=== PATIENT | female | born 1970 | race Caucasian/White ===

== ENCOUNTER 2018-06-24 07:59 | Emergency (ER) | payer OTHER ==
[2018-06-24 08:30] VITALS: BP 117/74
--- OUTSIDE RECORDS SUMMARY | 2018-06-24 09:10 | XMS REPORT | Continuity of Care Document ---
:1970 External Reference #:[id number] Author Name Juan R Linder M.D. 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 Tobacco Use Start: Unknown End: Former Cigarette Smoker Unknown ETOH Use Currently consumes alcohol socially Tobacco Use Start: Unknown Patient denies history of smoking Recreational Drug Use Denies Drug Use Tobacco Use Start: Unknown End: Patient is a former smoker quit 2008 Unknown Allergies, Adverse Reactions, Alerts Date Description Reaction Status Severity Comments 10/30/2017 Prozac swollen pain in joints Active 10/30/2017 Aspirin Active 10/30/2017 Varenicline Active Medications Medication Date Status Form Strength Qnty SIG Indications Ordering Provider Ergocalciferol 05/11/ Active Capsules [id number] 8caps 1 cap by Brandy, 2018 mouth Jocelyn, every week DO Tamoxifen 01/09/ Active Tablets 20mg 90tab 1 tabl by Jennifer Nava 2017 s mouth Jocelyn, every day DO Demetria-D 24 / Active Tablets ER 180-240mg as needed Unknown Hour Allergy & 0000 24HR Congestion Amlodipine / Active Tablets 2.5mg 1 by mouth Unknown Besylate 0000 every day Albuterol / Active Nebulizer (2.5mg/3M nebulized Unknown Sulfate 0000 L) 0.083% every 4 hours as needed Ortho Tri-Cyclen / Hx Tablets 0.18/0.21 1 by mouth Unknown (28) 0000 - 5/0.25 every day 12/03/ mg-35 mcg 2017 Medications Administered in Office Medication Date Status Form Strength Qnty SIG Indications Ordering Provider Vitamin B12 Administered Injection Oncology Injection 1000 019 Nurse mcg/Ml Vitamin B12 Administered Injection Oncology Injection 1000 019 Nurse mcg/Ml Vitamin B12 Administered Injection Boufal, Injection 1000 019 Jocelyn, mcg/Ml DO Vitamin B12 Administered Injection Boufal, Injection 1000 018 Jocelyn, mcg/Ml DO Immunizations Description No Information Available Vital Signs Date Vital Result Comment 06/18/2018 3:02pm BP Systolic 118 mmHg BP Diastolic 82 mmHg Heart Rate 93 /min Weight 177.00 lb O2 % BldC Oximetry 97 % 05/11/2018 4:06pm BP Systolic 125 mmHg BP Diastolic 77 mmHg Body Temperature 98.3 F Heart Rate 69 /min Respiratory Rate 18 /min Weight 176.00 lb O2 % BldC Oximetry 99 % Pain Level 0 01/30/2018 3:33pm BP Systolic 129 mmHg BP Diastolic 69 mmHg Body Temperature 98.3 F Heart Rate 69 /min Weight 171.25 lb O2 % BldC Oximetry 99 % Pain Level 0 01/09/2018 12:04pm BP Systolic 124 mmHg BP Diastolic 91 mmHg Body Temperature 98.6 F Heart Rate 77 /min Height 66 inches 5'6" Weight 172.38 lb BMI (Body Mass Index) 27.8 kg/m2 BSA (Body Surface Area) 1.88 m2 [place] body weight in kilograms 59 kg O2 % BldC Oximetry 98 % Pain Level 0 12/17/2017 3:08pm BP Systolic 114 mmHg BP Diastolic 80 mmHg Heart Rate 102 /min Respiratory Rate 17 /min Height 65 inches 5'5" Weight 169.00 lb BMI (Body Mass Index) 28.1 kg/m2 BSA (Body Surface Area) 1.84 m2 [place] body weight in kilograms 57 kg O2 % BldC Oximetry 97 % 12/03/2017 8:42am BP Systolic Sitting Right Arm 132 mmHg BP Diastolic Sitting Right Arm 87 mmHg Heart Rate 82 /min Respiratory Rate 14 /min Height 65 inches 5'5" Weight 167.00 lb BMI (Body Mass Index) 27.8 kg/m2 BSA (Body Surface Area) 1.83 m2 [place] body weight in kilograms 57 kg O2 % BldC Oximetry 99 % 11/12/2017 11:31am BP Systolic 137 mmHg BP Diastolic 84 mmHg Respiratory Rate 17 /min Height 65 inches 5'5" Weight 168.00 lb BMI (Body Mass Index) 28.0 kg/m2 BSA (Body Surface Area) 1.84 m2 [place] body weight in kilograms 57 kg O2 % BldC Oximetry 98 % 10/30/2017 3:38pm BP Systolic 117 mmHg BP Diastolic 81 mmHg Heart Rate 124 /min Respiratory Rate 16 /min Height 65 inches 5'5" Weight 171.00 lb BMI (Body Mass Index) 28.5 kg/m2 BSA (Body Surface Area) 1.85 m2 [place] body weight in kilograms 57 kg O2 % BldC Oximetry 95 % Results Test Date Facility Test Result H/L Range Note CBC 04/20/2018 [facility] White Blood 5.9 K/uL N 3.1-10.7 1 W/Automated [address] [place] [address] [phone] Red Blood Count 4.42 M/uL N 3.90-5.40 Hemoglobin 13.3 gm/dL N 11.6-15.8 Hematocrit 40.3 % N 36.0-46.1 Mean Cell Volume 91.2 fl N 80.9-99.0 Mean Corpuscular HGB 30.1 pg N 25.9-32.7 Mean Corpuscular HGB Conc 33.0 g/dL N 30.8-34.3 Platelet Count 213 K/uL N 155-360 Red Cell Distri Width SD 47.3 fl High 36-47 Red Cell Distri Width %CV 14.6 % High 11.7-14.4 Mean Platelet Volume 12.1 fL N 8.9-12.4 Neut% 58.0 % N 40.4-72.8 Lymph % 33.2 % N 20.0-42.0 [place] % 5.1 % N 4.3-13.2 Eo% 3.4 % N 0.0-6.6 Bas% 0.3 % N 0.0-1.1 Neut# 3.45 K/uL N 1.8-7.0 Lymph # 1.97 K/uL N 1.0-4.0 [place] # 0.30 K/uL N 0.3-0.9 Eos # 0.20 K/uL N 0.0-0.5 Baso # 0.02 K/uL N 0.0-0.1 Comprehensive Metabolic 04/20/2018 [facility] Glucose 127 mg/dL High 74-106 Panel [address] [place], [place] [id number] [phone] BUN 13 mg/dL N 7-18 Creatinine 0.9 mg/dL N 0.6-1.3 Glom Filtration Rate, Estimate >60 mL/min >60 If >60 mL/min >60 2 BUN/Creat 14.4 ratio Sodium 143 mmol/L N 136-145 Potassium 3.7 mmol/L N 3.5-5.1 Chloride 110 mmol/L High 98-107 Carbon Dioxide 26 mmol/L N 21-32 Anion Gap 7 mEq/L Low 8-16 Calcium 8.2 mg/dL Low 8.5-10.1 Total Protein 6.9 g/dL N 6.4-8.2 Albumin 3.6 g/dL N 3.4-5.0 Globulin 3.3 g/dL N 1.9-4.3 Alb/Glob 1.1 ratio Bilirubin,Total 0.5 mg/dL N 0.2-1.0 Sgot/Ast 13 U/L Low 15-37 3 SGPT/Alt 17 U/L N 12-78 Alkaline Phosphatase 32 U/L Low 45-117 Laboratory test 04/20/2018 [facility] CA 27.29 17.9 U/mL 0.0-38.6 4 finding [address] [place] [address] [phone] Iron-Tibc-%Sat 04/20/2018 [facility] Serum Iron 143 g/dL N 50-170 [address] [place] [address] [phone] Total Iron Binding Capacity 248 g/dL Low 250-450 Transferrin %Saturation 58 % High 12-57 Laboratory test 04/20/2018 [facility] Ferritin 111 ng/mL N 8-252 finding [address] [place], [place] [id number] [phone] Vitamin B12 And 04/20/2018 [facility] Vitamin B12 320 pg/mL N 193-986 Folate [address] [place] [address] [phone] Folic Acid 14.2 ng/mL N 3.1-17.5 Laboratory 04/20/2018 [facility] Vitamin 14.6 Low 30.0-100.0 5 test finding [address] D,25-Hydroxy ng/mL [place] [id number] [phone] CBC 01/09/2018 [facility] White Blood 8.4 K/uL N 3.1-10.7 W/Automated [address] [place] [address] [phone] Red Blood Count 4.40 M/uL N 3.90-5.40 Hemoglobin 12.9 gm/dL N 11.6-15.8 Hematocrit 40.2 % N 36.0-46.1 Mean Cell Volume 91.4 fl N 80.9-99.0 Mean Corpuscular HGB 29.3 pg N 25.9-32.7 Mean Corpuscular HGB Conc 32.1 g/dL N 30.8-34.3 Platelet Count 275 K/uL N 155-360 Red Cell Distri Width SD 45.0 fl N 3-47 Red Cell Distri Width %CV 13.8 % N 11.7-14.4 Mean Platelet Volume 12.4 fL N 8.9-12.4 Neut% 61.7 % N 40.4-72.8 Lymph % 29.6 % N 20.0-42.0 [place] % 7.0 % N 4.3-13.2 Eo% 1.5 % N 0.0-6.6 Bas% 0.2 % N 0.0-1.1 Neut# 5.18 K/uL N 1.8-7.0 Lymph # 2.49 K/uL N 1.0-4.0 [place] # 0.59 K/uL N 0.3-0.9 Eos # 0.13 K/uL N 0.0-0.5 Baso # 0.02 K/uL N 0.0-0.1 Comprehensive Metabolic 01/09/2018 [facility] Glucose 76 mg/dL N 74-106 Panel [address] [place] [address] [phone] BUN 9 mg/dL N 7-18 Creatinine 0.8 mg/dL N 0.6-1.3 Glom Filtration Rate, Estimate >60 mL/min >60 If >60 mL/min >60 6 BUN/Creat 11.2 ratio Sodium 140 mmol/L N 136-145 Potassium 4.1 mmol/L N 3.5-5.1 Chloride 104 mmol/L N 98-107 Carbon Dioxide 29 mmol/L N 21-32 Anion Gap 7 mEq/L Low 8-16 Calcium 9.0 mg/dL N 8.5-10.1 Total Protein 8.2 g/dL N 6.4-8.2 Albumin 4.3 g/dL N 3.4-5.0 Globulin 3.9 g/dL N 1.9-4.3 Alb/Glob 1.1 ratio Bilirubin,Total 0.4 mg/dL N 0.2-1.0 Sgot/Ast 19 U/L N 15-37 SGPT/Alt 25 U/L N 12-78 Alkaline Phosphatase 49 U/L N 45-117 Laboratory test 01/09/2018 [facility] CA 27.29 20.6 U/mL 0.0-38.6 7 finding [address] [place] [address] [phone] Iron-Tibc-%Sat 01/09/2018 [facility] Serum Iron 37 g/dL Low 50-170 [address] [place] [address] [phone] Total Iron Binding Capacity 395 g/dL N 250-450 Transferrin %Saturation 9 % Low 12-57 Laboratory test 01/09/2018 [facility] Ferritin 8 ng/mL N 8-252 finding [address] [place] [address] [phone] Laboratory test 01/09/2018 [facility] Vitamin 33.9 ng/mL 30.0-100.0 8 finding [address] D,25-Hydroxy [place] [id number] [phone] Vitamin B12 And 01/09/2018 [facility] Vitamin B12 291 pg/mL N 193-986 Folate [address] [place], [place] [id number] [phone] Folic Acid 18.2 ng/mL High 3.1-17.5 Protime 11/26/2017 [facility] Protime 15.1 seconds High 12.0-14.4 9 [address] [place] [address] [phone] Inr 1.2 High 0.9-1.1 10 CBC 11/26/2017 [facility] White Blood Count 10.3 K/uL N 3.1-10.7 [address] [place] [address] [phone] Red Blood Count 4.01 M/uL N 3.90-5.40 Hemoglobin 12.2 gm/dL N 11.6-15.8 Hematocrit 36.9 % N 36.0-46.1 Mean Cell Volume 92.0 fl N 80.9-99.0 Mean Corpuscular HGB 30.4 pg N 25.9-32.7 Mean Corpuscular HGB Conc 33.1 g/dL N 30.8-34.3 Platelet Count 229 K/uL N 155-360 Red Cell Distri Width %CV 13.8 % N 11.7-14.4 Mean Platelet Volume 12.3 fL N 8.9-12.4 Laboratory test 11/25/2017 [facility] Platelet Count 195 K/uL N 155-360 finding [address] [place] [address] [phone] 1 C50.211 2 Note: Persistent reduction for 3 months or more in an eGFR <60 mL/min/1.73 m2 defines CKD. Patients with eGFR values >/=60 mL/min/1.73 m2 may also have CKD if evidence of persistent proteinuria is present. The original MDRD equation for estimated GFR is not valid for patients less than 18 years of age. Additional information may be found at www.kdoqi.org. 3 Values below the stated reference ranges of AST and ALT can be seen in normal populations. Clinical correlation is suggested. 4 Chantale Centaur/ACS methodology Values obtained with different assay methods or kits cannot be used interchangeably. Results cannot be interpreted as absolute evidence of the presence or absence of malignant disease. Performed at: [address] [id number] Resident Program Specialist: Rosa Horvath MD, Phone: [phone] 5 Vitamin D deficiency has been defined by the [place] of [employer] and an Endocrine Society practice guideline as a level of serum 25-OH vitamin D less than 20 ng/mL (1,2). The Endocrine Society went on to further define vitamin D insufficiency as a level between 21 and 29 ng/mL (2). 1. IOM ([place] of [employer]). 2010. Dietary reference intakes for calcium and D. Cox [place]: The National Academies Press. 2. Deja MF, Sammy NC, Tc SARAVIA, et al. Evaluation, treatment, and prevention of vitamin D deficiency: an Endocrine Society clinical practice guideline. JCEM. 2010; 96(7):1911-30. Performed at: [facility] [address] [id number] Resident Program Specialist: Rosa Horvath MD, Phone: [phone] Note: Persistent reduction for 3 months or more in an eGFR <60 mL/min/1.73 m2 defines CKD. Patients with eGFR values >/=60 mL/min/1.73 m2 may also have CKD if evidence of persistent proteinuria is present. The original MDRD equation for estimated GFR is not valid for patients less than 18 years of age. Additional information may be found at www.kdoqi.org. 7 Chantale Centaur/ACS methodology Values obtained with different assay methods or kits cannot be used interchangeably. Results cannot be interpreted as absolute evidence of the presence or absence of malignant disease. Performed at: [facility] [address] [id number] Resident Program Specialist: Rosa Horvath MD, Phone: [phone] 8 Vitamin D deficiency has been defined by the [place] [employer] and an Endocrine Society practice guideline as a level of serum 25-OH vitamin D less than 20 ng/mL (1,2). The Endocrine Society went on to further define vitamin D insufficiency as a level between 21 and 29 ng/mL (2). 1. IOM ([place] of [employer]). 2010. Dietary reference intakes for calcium and D. Cox [place]: The National Academies Press. 2. Deja MF, Sammy NC, Tc SARAVIA, et al. Evaluation, treatment, and prevention of vitamin D deficiency: an Endocrine Society clinical practice guideline. JCEM. 2010; 96(7):1911-30. Performed at: RN - [facility] [address] [id number] Resident Program Specialist: Rosa Horvath MD, Phone: [phone] CONSULT 11/21/17 12:00 10 THERAPEUTIC INR RANGE: 2.0 - 3.0 DVT, Pulmonary embolus, prophylaxis against venous thrombosis or systemic embolization in high risk patients. 2.5 - 3.5 Mechanical heart valves Procedures Date Code Description Status 06/08/2018 41411 Theraputic Or Diagnostic Injection Completed 05/25/2018 34549 Theraputic Or Diagnostic Injection Completed 05/11/2018 49151 Theraputic Or Diagnostic Injection Completed 01/30/2018 51942 Theraputic Or Diagnostic Injection Completed 11/26/2017 18767 Incision And Drainage Of Hematoma, Seroma Or Fluid Completed Collection 11/25/2017 16325 Mastectomy, modified radical inc axilla lymph nodes Completed w/wo pectoral 09/29/2017 [id number] Mammogram Completed Encounters Type Date Location Provider Dx Diagnosis Office Visit 05/11/2018 Oncology Office Jocelyn Nava C50.211 [facility] of 3:30p DO upper-inner quadrant of right female breast E53.9 Vitamin B deficiency, unspecified E61.1 Iron deficiency E55.9 Vitamin D deficiency, unspecified Office Visit 01/30/2018 3:30p Oncology Office Brandy C50.211 [facility] neoplm of Jocelyn, DO upper-inner quadrant of right female breast E61.1 Iron deficiency E53.9 Vitamin B deficiency, unspecified Office Visit 01/09/2018 Oncology Jocelyn Nava C50.211 [facility] neoplm of 12:00p Office DO upper-inner quadrant of right female breast Office Visit 11/12/2017 Surgical Niyah, C50.211 [facility] neoplm of 11:30a Office isaias Valente M.D. quadrant of right female breast Office Visit 10/30/2017 Surgical Niyah R92.8 Oth abn and 3:00p Office carl Valente M.D. findings on dx imaging of breast Plan of Treatment Future Appointment(s):07/02/2018 8:30 am - Juan R Linder M.D. at Surgical Pbivay2406/22/2018 8:30 am - Oncology Nurse at Oncology [id number] - Juan R Linder M.D.C50.211 Malignant neoplasm of upper-inner quadrant of right female breastNew Labs:Path Review, Scheduled: 12/03/17Comments :Doing well following mastectomy. No difficulties. Use Silvadene on gauze dressings going forward until the drainage subsides. Return in 2 weeks. Oncology follow-up in place to be continued without change in plan.Referral: Jocelyn Nava DO, Hematology & Oncology
--- OUTSIDE RECORDS SUMMARY | 2018-06-24 09:11 | XMS REPORT | Continuity of Care Document ---
:1970 External Reference #:[id number] Author Name Kamilah Cool Care Team Providers Name Role Phone Ethan Blackmon MD Care Team Information Trauma Doctor Unavailable Benedicto Jamison MD Primary Care Physician Unavailable Payers Date Identification Numbers Payment Provider Subscriber Policy Number: [id number] Lifetime Benefit Solution Charmaine Alcantara PayID: [id number] [address] [address] [place] [address] Advance Directives Description No Information Available Problems Date Description Provider Status Onset: 11/12/2017 Malignant neoplasm of Juan R Linder Active upper-inner 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 breast Onset: 12/17/2017 Postoperative hematoma Juan R Linder Active formation M.D. Onset: 05/11/2018 Vitamin D [...] Indications Ordering Provider Ergocalciferol 05/11/ Active Capsules [id number] 8caps 1 cap by Radha Nava mouth Jocelyn, every week DO Tamoxifen 01/09/ Active Tablets 20mg 90tab 1 tabl by Brandy Citrate 2017 s mouth Jocelyn, every day DO [...] Available Vital Signs Date Vital Result Comment 05/11/2018 4:06pm BP Systolic 125 mmHg BP [...] kg/m2 BSA (Body Surface Area) 1.88 m2 [place] body weight in kilograms 59 kg O2 % BldC Oximetry 98 % Pain Level 0 12/17/2017 3:08pm BP Systolic 114 mmHg BP Diastolic 80 mmHg Heart Rate 102 /min Respiratory Rate 17 /min Height 65 inches 5'5" Weight 169.00 lb BMI (Body Mass Index) 28.1 kg/m2 BSA (Body Surface Area) 1.84 m2 [place] body weight in kilograms 57 kg O2 % BldC Oximetry 97 % 12/03/2017 8:42am BP Systolic Sitting Right Arm 132 mmHg BP Diastolic Sitting Right Arm 87 mmHg Heart Rate 82 /min Respiratory Rate 14 /min Height 65 inches 5'5" Weight 167.00 lb BMI (Body Mass Index) 27.8 kg/m2 BSA (Body Surface Area) 1.83 m2 [place] body weight in kilograms 57 kg O2 % BldC Oximetry 99 % 11/12/2017 11:31am BP Systolic 137 mmHg BP Diastolic 84 mmHg Respiratory Rate 17 /min Height 65 inches 5'5" Weight 168.00 lb BMI (Body Mass Index) 28.0 kg/m2 BSA (Body Surface Area) 1.84 m2 [place] body weight in kilograms 57 kg O2 % BldC Oximetry 98 % 10/30/2017 3:38pm BP Systolic 117 mmHg BP Diastolic 81 mmHg Heart Rate 124 /min Respiratory Rate 16 /min Height 65 inches 5'5" Weight 171.00 lb BMI (Body Mass Index) 28.5 kg/m2 BSA (Body Surface Area) 1.85 m2 [place] body weight in kilograms 57 kg O2 % BldC Oximetry 95 % Results Test Date Facility Test Result H/L Range Note CBC 04/20/2018 [facility] White Blood 5.9 K/uL N 3.1-10.7 1 W/Automated [address] [place] [address] [phone] Red Blood Count 4.42 M/uL N 3.90-5.40 [...] 40.4-72.8 Lymph % 33.2 % N 20.0-42.0 [place] % 5.1 % N 4.3-13.2 Eo% 3.4 % N 0.0-6.6 Bas% 0.3 % N 0.0-1.1 Neut# 3.45 K/uL N 1.8-7.0 Lymph # 1.97 K/uL N 1.0-4.0 [place] # 0.30 K/uL N 0.3-0.9 Eos # 0.20 K/uL N 0.0-0.5 Baso # 0.02 K/uL N 0.0-0.1 Comprehensive Metabolic 04/20/2018 [facility] Glucose 127 mg/dL High 74-106 Panel [address] [place] [address] [phone] BUN 13 mg/dL N 7-18 Creatinine 0.9 [...] 32 U/L Low 45-117 Laboratory test 04/20/2018 [facility] CA 27.29 17.9 U/mL 0.0-38.6 4 finding [address] [place] [address] [phone] Iron-Tibc-%Sat 04/20/2018 [facility] Serum Iron 143 g/dL N 50-170 [address] [place] [address] [phone] Total Iron Binding Capacity 248 g/dL Low 250-450 Transferrin %Saturation 58 % High 12-57 Laboratory test 04/20/2018 [facility] Ferritin 111 ng/mL N 8-252 finding [address] [place] [address] [phone] Vitamin B12 And 04/20/2018 [facility] Vitamin B12 320 pg/mL N 193-986 Folate [address] [place] [address] [phone] Folic Acid 14.2 ng/mL N 3.1-17.5 Laboratory 04/20/2018 [facility] Vitamin 14.6 Low 30.0-100.0 5 test finding [address] D,25-Hydroxy ng/[place] [address] [phone] Laboratory 01/09/2018 [facility] Vitamin 33.9 30.0-100.0 6 test finding [address] D,25-Hydroxy ng/[place] [address] [phone] Vitamin B12 01/09/2018 [facility] Vitamin B12 291 pg/mL N 193-986 And Folate [address] [place] [address] [phone] Folic Acid 18.2 ng/mL High 3.1-17.5 Laboratory test 01/09/2018 [facility] Ferritin 8 ng/mL N 8-252 finding [address] [place] [address] [phone] Iron-Tibc-%Sat 01/09/2018 [facility] Serum Iron 37 g/dL Low 50-170 [address] [place] [address] [phone] Total Iron Binding Capacity 395 g/dL N 250-450 Transferrin %Saturation 9 % Low 12-57 Laboratory test finding 01/09/2018 [facility] CA 27.29 20.6 U/mL 0.0-38.6 7 [address] [place] [address] [phone] Comprehensive Metabolic 01/09/2018 [facility] Glucose 76 mg/dL N 74-106 Panel [address] [place] [address] [phone] BUN 9 mg/dL N 7-18 Creatinine 0.8 mg/dL N 0.6-1.3 Glom Filtration Rate, Estimate >60 mL/min >60 If >60 mL/min >60 8 BUN/Creat 11.2 ratio Sodium 140 mmol/L N [...] 12-78 Alkaline Phosphatase 49 U/L N 45-117 CBC W/Automated Diff 01/09/2018 [facility] White Blood 8.4 K/uL N 3.1-10.[address] Count [place], [place] [id number] [phone] Red Blood Count 4.40 M/uL N 3.90-5.40 [...] 40.4-72.8 Lymph % 29.6 % N 20.0-42.0 [place] % 7.0 % N 4.3-13.2 Eo% 1.5 % N 0.0-6.6 Bas% 0.2 % N 0.0-1.1 Neut# 5.18 K/uL N 1.8-7.0 Lymph # 2.49 K/uL N 1.0-4.0 [place] # 0.59 K/uL N 0.3-0.9 Eos # 0.13 K/uL N 0.0-0.5 Baso # 0.02 K/uL N 0.0-0.1 CBC 11/26/2017 [facility] White Blood Count 10.3 K/uL N 3.1-10.7 9 [address] [place], [place] [address] [phone] Red Blood Count 4.01 M/uL N 3.90-5.40 Hemoglobin 12.2 gm/dL N 11.6-15.8 Hematocrit 36.9 % N 36.0-46.1 Mean Cell Volume 92.0 fl N 80.9-99.0 Mean Corpuscular HGB 30.4 pg N 25.9-32.7 Mean Corpuscular HGB Conc 33.1 g/dL N 30.8-34.3 Platelet Count 229 K/uL N 155-292 Red Cell Distri Width %CV 13.8 % N 11.7-14.4 Mean Platelet Volume 12.3 fL N 8.9-12.4 Protime 11/26/2017 [facility] Protime 15.1 seconds High 12.0-14.4 [address] [place], [place] [address] [phone] Inr 1.2 High 0.9-1.1 10 Laboratory test 11/25/2017 [facility] Platelet Count 195 K/uL N 155-360 finding [address] [place], [place] [address] [phone] 1 C50.211 2 Note: Persistent reduction for [...] populations. Clinical correlation is suggested. 4 Chantale Augmateaur/AlloCure methodology Values obtained with different assay methods or kits cannot be used interchangeably. Results cannot be interpreted as absolute evidence of the presence or absence of malignant disease. Performed at: RN - [facility], [place] [id number] [employer] Worker: Rosa Horvath MD, Phone: [phone] 5 Vitamin D deficiency has been defined by the [place] [employer] and an Endocrine Society practice guideline as a level of serum 25-OH vitamin D less than 20 ng/mL (1,2). The Endocrine Society went on to further define vitamin D insufficiency as a level between 21 and 29 ng/mL (2). 1. IOM ([place] [employer]). 2010. Dietary reference intakes for calcium and D. [place]: The National Academies Press. 2. Sammy Chaudhari, Tc SARAVIA, et al. Evaluation, treatment, and prevention of vitamin D deficiency: an Endocrine Society clinical practice guideline. JCEM. 2010; 96(7):1911-30. Performed at: [address] [id number] [employer] Worker: Rosa Horvath MD, Phone: [phone] 6 Vitamin D deficiency has been defined by the [place] [employer] and an Endocrine Society practice guideline as a level of serum 25-OH vitamin D less than 20 ng/mL (1,2). The Endocrine Society went on to further define vitamin D insufficiency as a level between 21 and 29 ng/mL (2). 1. IOM ([place] [employer]). 2010. Dietary reference intakes for calcium and D. [place]: The National Academies Press. 2. Sammy Chaudhari, Tc SARAVIA, et al. Evaluation, treatment, and prevention of vitamin D deficiency: an Endocrine Society clinical practice guideline. JCEM. 2010; 96(7):1911-30. Performed at: [address] [id number] [employer] Worker: Rosa Horvath MD, Phone: [phone] 7 Chantale Augmateaur/ACS methodology Values obtained with different assay methods or kits cannot be used interchangeably. Results cannot be interpreted as absolute evidence of the presence or absence of malignant disease. Performed at: [address] [id number] [employer] Worker: Rosa Horvath MD, Phone: [phone] Note: Persistent reduction for 3 months or more in an eGFR <60 mL/min/1.73 m2 defines CKD. Patients with eGFR values >/=60 mL/min/1.73 m2 may also have CKD if evidence of persistent proteinuria is present. The original MDRD equation for estimated GFR is not valid for patients less than 18 years of age. Additional information may be found at www.kdoqi.org. 9 CONSULT 11/21/17 12:00 10 THERAPEUTIC INR RANGE: 2.0 - 3.0 DVT, Pulmonary embolus, prophylaxis against venous thrombosis or systemic embolization in high risk patients. 2.5 - 3.5 Mechanical heart valves Procedures Date Code Description Status 05/25/2018 93565 Theraputic Or Diagnostic Injection Completed 01/30/2018 80752 Theraputic Or Diagnostic Injection Completed 11/26/2017 44983 Incision And Drainage Of Hematoma, Seroma Or Fluid Completed Collection 11/25/2017 21592 Mastectomy, modified radical inc axilla lymph nodes Completed w/wo pectoral 09/29/2017 95956685 Mammogram Completed Encounters Type Date Location Provider Dx Diagnosis Office Visit 01/30/2018 Oncology Office Jocelyn Nava C50.211 [place] [facility] of 3:30p DO upper-inner quadrant of right female breast E61.1 Iron deficiency E53.9 Vitamin B deficiency, unspecified Office Visit 01/09/2018 Oncology Jocelyn Nava C50.211 [place] neopl[facility] of 12:00p Office DO upper-inner quadrant of right female breast Office Visit 11/12/2017 Sandra Linder C50.211 [place] neopl[facility] of 11:30a Office isaias Valente M.D. quadrant of right female breast Office Visit 10/30/2017 Surgical Niyah R92.8 Ot abn and 3:00p Office carl Valente M.D. findings on dx imaging of breast Plan of Treatment Future Appointment(s):06/08/2018 8:00 am - Oncology Nurse at [facility]0110/2018 10:00 am - Juan R Linder M.D. at [facility]7012/03/2017 - Juan R Linder M.D.C50.211 Malignant neoplasm of upper-inner quadrant of right female breastNew Labs:Path Review, Scheduled: 12/03/17Comments :Doing well following mastectomy. No difficulties. Use Silvadene on gauze dressings going forward until the drainage subsides. Return in 2 weeks. Oncology follow-up in place to be continued without change in plan.Referral: Jocelyn Nava DO, Hematology & Oncology
--- NOTE | 2018-06-24 09:32 | UC ---
Throat Pain/Nasal Giuliano HPI - HPI Summary HPI Summary: 48-year-old woman comes in with a chief complaint of upper respiratory tract infection symptoms for 3 days. She has runny nose and sinus pressure. She had some blood in her rhinorrhea this morning. [id number]-[id number] medicines to help with symptoms. She does have a cough but no shortness of breath. No chest congestion. No sore throat no bodyaches. - History of Current Complaint Chief Complaint: UCGeneralIllness Stated Complaint: CONGESTION SINUS COUGH Time Seen by Provider: 06/24/18 09:21 Hx Last Menstrual Period: ablation Pain Intensity: 0 - Allergies/Home Medications Allergies/Adverse Reactions: Allergies Allergy/AdvReac Type Severity Reaction Status Date / Time aspirin Allergy See Comment Verified 06/24/18 08:25 fluoxetine [From Prozac] AdvReac See Comment Verified 06/24/18 08:25 varenicline [From Chantix] AdvReac See Comment Verified 06/24/18 08:25 Home Medications: Home Medications Cholecalciferol TAB* [Vitamin D TAB*] 1,000 unit PO DAILY 06/24/18 [History Confirmed 06/24/18] Fexofenadine/Pseudoephedrine [Demetria-D 24 Hour Tablet] 1 each PO DAILY [History Confirmed 06/24/18] Ibuprofen TAB* [Motrin TAB* 800 MG] 800 mg PO Q6H PRN 06/24/18 [History Confirmed 06/24/18] Tamoxifen TAB* [Nolvadex*] 20 mg PO DAILY 06/24/18 [History Confirmed 06/24/18] amLODIPine TAB* [Norvasc 5 mg TAB*] 2.5 mg PO DAILY 06/24/18 [History Confirmed 06/24/18] PMH/Surg Hx/FS Hx/Imm Hx Previously Healthy: Yes Cardiovascular History: Hypertension Cancer History: Breast Cancer - Surgical History Surgical History: Yes Surgery Procedure, Year, and Place: ganglion cyst. breast biopsy. masectomy R. uterine ablation. tubal - Family History Known Family History: Positive: Non-Contributory - Social History Alcohol Use: Occasionally Substance Use Type: None Smoking Status (MU): Former Smoker When Did the Patient Quit Smoking/Using Tobacco: 5 + years Review of Systems All Other Systems Reviewed And Are Negative: Yes Constitutional: Positive: Negative Skin: Positive: Negative Eyes: Positive: Negative ENT: Positive: Nasal Discharge, Sinus Congestion, Sinus Pain/Tenderness Respiratory: Positive: Cough Cardiovascular: Positive: Negative Gastrointestinal: Positive: Negative Motor: Positive: Negative Neurovascular: Positive: Negative Musculoskeletal: Positive: Negative Neurological: Positive: Negative Psychological: Positive: Negative Is Patient Immunocompromised?: No Physical Exam Triage Information Reviewed: Yes Appearance: No Pain Distress, Well-Nourished, Ill-Appearing - MILD Vital Signs: Initial Vital Signs Temp 97.9 F 06/24/18 08:26 Pulse 85 06/24/18 08:26 Resp 16 06/24/18 08:26 BP 117/74 06/24/18 08:26 Pulse Ox 99 06/24/18 08:26 Vital Signs Reviewed: Yes Eye Exam: Normal Eyes: Positive: Conjunctiva Clear ENT: Positive: Pharyngeal erythema, Nasal congestion, Nasal drainage, TMs normal Neck exam: Normal Neck: Positive: Supple Respiratory: Positive: Lungs clear, Normal breath sounds, No respiratory distress Cardiovascular: Positive: RRR Musculoskeletal Exam: Normal Musculoskeletal: Positive: Strength Intact, ROM Intact Neurological Exam: Normal Neurological: Positive: Alert, Muscle Tone Normal Psychological Exam: Normal Psychological: Positive: Age Appropriate Behavior Skin Exam: Normal Throat Pain/Nasal Course/Dx - Course Course Of Treatment: DISCUSSED VIRAL VERSES BACTERIAL INFECTION AND THE ROLE OF ANTIBIOTICS. THE PATIENT WISHES TO BE ON ANTIBIOTICS AT THIS TIME. - Differential Dx/Diagnosis Provider Diagnosis: Upper respiratory infection Discharge - Sign-Out/Discharge Documenting (check all that apply): Patient Departure All imaging exams completed and their final reports reviewed: No Studies - Discharge Plan Condition: Stable Disposition: HOME Prescriptions: Amoxicillin PO (*) [Amoxicillin 875 MG (*)] 875 mg PO BID #20 tab Benzonatate CAP* [Tessalon 100 MG CAP*] 100 mg PO TID PRN #20 cap PRN Reason: Cough Patient Education Materials: Upper Respiratory Infection (ED) Forms: *Work Release Referrals: Benedicto Jamison MD [Primary Care Provider] - Additional Instructions: FOLLOW UP WITH YOUR DOCTOR IF NOT COMPLETELY IMPROVED. GET RECHECKED FOR ANY WORSENING OF YOUR CONDITION OR QUESTIONS OR CONCERNS. - Billing Disposition and Condition Condition: STABLE Disposition: Home
== END 2018-06-24 09:43 | disposition home or self-care (01) ==
LOC: UCCORT 07:59
DX: J06.9 Acute upper respiratory infection, unspecified (principal); I10 Essential (primary) hypertension; Z79.899 Other long term (current) drug therapy; Z87.891 Personal history of nicotine dependence; Z88.8 Allergy status to other drugs, medicaments and biological substances
CPT/HCPCS: 99212; G0463